=== PATIENT | male | born 1950 | race Caucasian/White ===

== ENCOUNTER 2020-11-06 16:42 | Inpatient (IN) | payer MEDICARE, OTHER ==
[~2020-11-06] VITALS: Ht 180.3 cm; Wt 72.7 kg
[2020-11-06] MEDS ORDERED: ONDANSETRON 2MG/ML, 2ML ONE (17:19)
[2020-11-06] MEDS ORDERED: HYDROmorphone 1 MG/ML, 1ML INJ ONE ×2 (17:19→20:53)
[2020-11-06] MEDS ORDERED: ONDANSETRON 2MG/ML, 2ML IVPush ONE (17:30)
[2020-11-06] MEDS ORDERED: SODIUM CHLORIDE 0.9% 1,000 ML IV ONE (17:30)
[2020-11-06] MEDS: HYDROmorphone 2 MG/ML, 1ML IVPush PRN ×2 (17:37→21:00)
--- NOTE | 2020-11-06 17:42 | NUR ---
PIV EST AND PT MED NOTED. PT TO RADIOLOGY WITH TECH TRANSPORT. TRANSPORT AWARE PT WAS GIVEN 1MG DILAUDID.
--- NOTE | 2020-11-06 17:46 | NUR ---
PT DAUGHTER CALLED MARCUS VAZQUEZ [phone]
[2020-11-06 17:51] LABS: ALBUMIN 2.6 g/dL (3.4-5.0); ANION GAP 12 mmol/L (5-15); CALCIUM 9.1 mg/dL (8.5-10.1); CHLORIDE 100 mmol/L (98-107)
[2020-11-06 17:52] LABS: BASOPHILS % (AUTO) 0 % (0-1); EOSINOPHILS % (AUTO) 0 % (1-7); LYMPHOCYTES % (AUTO) 3 % (22-44); MEAN CORPUSCULAR HEMOGLOBIN 32.4 pg (27.5-34.5); MEAN CORPUSCULAR HGB CONC 33.8 g/dL (33.2-36.2); MEAN PLATELET VOLUME 8.8 fL (7.4-10.4); MONOCYTES % (AUTO) 5 % (2-9); NEUTROPHILS % (AUTO) 92 % (42-75); PLATELET COUNT 326 x10^3/uL (130-400); RED CELL DISTRIBUTION WIDTH 14.9 % (9.4-14.8)
[2020-11-06 17:54] LABS: ALANINE AMINOTRANSFERASE 38 U/L (12-78); ALKALINE PHOSPHATASE 133 U/L (45-117); BILIRUBIN,TOTAL 0.4 mg/dL (0.2-1.0); TOTAL PROTEIN 7.5 g/dL (6.4-8.2)
--- NOTE | 2020-11-06 18:03 | NUR ---
PT RTD FFROM RADIOLOGY, PER TECH AND PT RPT PT TOLLERATED WELL. PT RATES PAIN 4/10. ALL MONITORS IN PLACE, VSS. CALL LIGHT W/I REACH. IVF INFUSING ON DIAL-A-FLOW W/O DIFFICULTY
--- NOTE | 2020-11-06 18:09 | NUR ---
PT HR A-FIB W/ FILEMON OF. PT RPTS HE WAS UNABLE TO TOLLERATE TAKING ANY OF HIS MEDICATIONS TODAY. HR A-FIB 110 - 140 BP 180/75. DR ALBA AWARE.
[2020-11-06 18:32] LABS: MD SCAN
[2020-11-06] MEDS ORDERED: OMNIPAQUE 350 MG/ML, 100ML BOTTLE ONE (20:06)
[2020-11-06] MEDS ORDERED: SODIUM CHLORIDE 0.9% 1,000ML IVBOLUS ONE (21:00)
[2020-11-06] MEDS ORDERED: CEFTRIAXONE PMX 1GM/50ML 50 ML IV ONE (21:00)
[2020-11-06] MEDS ORDERED: DILTIAZEM 5 MG/ML, 5ML IVPush ONE (21:00)
[2020-11-06] MEDS ORDERED: METRONIDAZOLE PMX 500MG/100ML 100 ML IV ONE (21:00)
[2020-11-06] MEDS ORDERED: DILTIAZEM 5 MG/ML, 5ML ONE (21:08)
[2020-11-06] MEDS ORDERED: CEFTRIAXONE PMX 1GM/50ML 50 ML ONE (21:08)
[2020-11-06] MEDS ORDERED: METRONIDAZOLE PMX 500MG/100ML 100 ML ONE (22:25)
[2020-11-06] MEDS ORDERED: LORazepam 2 MG/ML, 1ML ONE (22:25)
[2020-11-06] MEDS ORDERED: ONDANSETRON 2MG/ML, 2ML IVPush PRN (22:30)
[2020-11-06] MEDS ORDERED: DILTIAZEM 125 MG in SODIUM CHLORIDE 0.9% 100 ML IV SCH (22:30)
[2020-11-06] MEDS ORDERED: BISACODYL 5 MG EC TABLET PO PRN (22:30)
[2020-11-06] MEDS: LORazepam 2 MG/ML, 1ML IVPush PRN (22:49)
--- NOTE | 2020-11-07 00:59 | NUR ---
PT ON COMFORT CARE, COMPLAINING THAT HE CANNOT URINATE. INPATIENT NOTIFIED. JAUREGUI PLACED. PT SEEMS TO BE UNCOMFORTABLE, BUT IS REFUSING PAIN MEDICATION STATING IT MADE HIM "FOGGY" AND HE DIDN'T WANT TO FEEL THAT WAY. RN OFFERED TO DISCUSS THIS ISSUE WITH INPATIENT ABOUT POSSIBLE MEDICATIONS. PT REFUSED SAYING HE DID NOT WANT ANYTHING AND WANTED TO GO TO SLEEP. PT GIVEN COVERS. LIGHTS DIMMED. MONITORED PLACED ON PRIVACY TO ALLOW PT A QUIET SETTING TO AID IN HIS DISCOMFORT. BIBI.
--- NOTE | 2020-11-07 01:03 | NUR ---
HR STILL ELEVATED. INPT NOTIFIED. RN ORDERED TO STOP CARDIZEM GTT TO MAINTAIN PT BP. WCTM.
--- NOTE | 2020-11-07 01:28 | NUR ---
TASK RN: PT RESTING ON GURNEY LIGHTS DIMMED RESP EVEN AND UNLABORED
[2020-11-07] MEDS ORDERED: MORPHINE SULFATE 4 MG/ML, 1ML IVPush PRN (01:30)
[2020-11-07] MEDS ORDERED: MORPHINE SULFATE 4 MG/ML, 1ML ONE (02:24)
--- NOTE | 2020-11-07 02:26 | NUR ---
PT CALLED RN. COMPLAINING OF PAIN. MORPHINE ADMINISTERED. PT REASSESSED AND PT IS SLEEPING COMFORTABLE. WCTM.
[2020-11-07] MEDS ORDERED: HYDROmorphone 1 MG/ML, 1ML INJ ONE ×6 (03:18→13:43)
[2020-11-07] MEDS: HYDROmorphone 1 MG/ML, 1ML INJ IV PRN ×7 (03:21→17:31)
--- NOTE | 2020-11-07 03:48 | NUR ---
PT PLACED ON HOSPITAL BED
--- NOTE | 2020-11-07 07:00 | NUR ---
assumed care of pt. report from Dunia BUTLER. pt here for abd pain and diarrhea. per report, pt has declined emergency surgery and has been placed on comfort care. pt has a farfan to drainage and is on a hospital bed for comfort. awaiting hospitalist to bedside for eval. awaiting arrival of pt family members. pr report, B/P cuff has been removed for pt comfort. pt is currently sleeping in position of comfort with lights dimmed. no apparent resp. distress notd at this time. discussed pending admit and orders in place with jenifer BUTLER
--- NOTE | 2020-11-07 07:45 | NUR ---
pt awake and requesting pain meds. pt has been medicated per order and updated on POC. pt positioning for comfort
--- NOTE | 2020-11-07 07:55 | NUR ---
oral swabs at bedside per pt request. pt is dozing
--- NOTE | 2020-11-07 08:07 | NUR ---
pt family at bedside
--- NOTE | 2020-11-07 08:45 | NUR ---
pt denies nausea. pt also declines meal tray or anything by mouth at this time. pt made aware that he can change his mind at any time
--- NOTE | 2020-11-07 09:45 | NUR ---
pt is sleeping pt has stated that he wants to be awake when he recievd pain meds and does not want to be medicated whn he is sleeping. will continue to monitor
--- NOTE | 2020-11-07 10:00 | NUR ---
pt sleeping in posiion of comfort with lights dimmed
--- NOTE | 2020-11-07 11:02 | NUR ---
no changes. pt sleeping in position of comfort. lights dimmed. no family at bedside
--- NOTE | 2020-11-07 11:45 | NUR ---
pt is now awake and requesting pain meds. pt medicated family at bedside. pt deneis nausea at this time. pt still declines food or drinks, but PO ice chips given pre request. pt updated on POC. pt resting in position of comfort
--- NOTE | 2020-11-07 12:05 | NUR ---
this RN had a very lengthy discussion with pt daughter regarding pt POC and pt comfort. pt daughter states that pt brother is en route to the facility and wants a family meeting scheduled with the patient, his family, his doctor and his surgeon to discuss his options pt is requesting KIRILL garcia, dietary has been contacted
--- NOTE | 2020-11-07 12:30 | NUR ---
pt son is now at bedside. pt daugher at bedside and pt SO at bedside. pt now states that "now that my son is here and my kids are here, I want a meeting with the surgeon to discuss my options" asked pt if he was wanting to change his POC, pt states that e is "on he fence about it" and "wants to talk to the doctor."
--- NOTE | 2020-11-07 12:35 | NUR ---
spoke to Dr. Alison castañeda the hsopitalist service regading pt statements and pt request to "meet with his doctors". per MD, pt needs to speak to the surgeon who consulted on the case pe Dr. Rosas, pt spoke to Dr. Jermaine St regarding possible surgery last nocs
--- NOTE | 2020-11-07 12:45 | NUR ---
paged Dr. Jermaine St with [facility] at [phone]
--- NOTE | 2020-11-07 12:50 | NUR ---
Dr. St has returned the page. updated on pt statements. Dr. St sates that he will be here in a couple of hours pt and family notified
--- NOTE | 2020-11-07 13:23 | NUR ---
pt dozing intermittently. pt and son at bedside updated on POC. pt to remain NPO at this time pending surgical consult
--- NOTE | 2020-11-07 13:29 | NUR ---
Dr. Rosas, hospitalist at bedside for eval
--- NOTE | 2020-11-07 13:37 | NUR ---
pt states to MD that he does not want to change his current POC. pt requesting KIRILL garcia pt positioning for comfort
[2020-11-07] MEDS ORDERED: ONDANSETRON 2MG/ML, 2ML ONE (13:43)
--- NOTE | 2020-11-07 13:48 | NUR ---
report to Roseann BUTLER for lunch
[2020-11-07 13:51] VITALS: BP 128/76
--- NOTE | 2020-11-07 13:51 | NUR ---
BREAK RN: PT RESTING UPRIGHT ON HOSPITAL BED WITH EYES CLOSED, RESPONDS APPROP TO STAFF & CONVERSES WITH FAMILY AT BS COHERENTLY, NAD- MEDICATED PER EMAR, COMFORT MEASURES PROVIDED INCL COLBY AT BS, CALL LIGHT WITHIN REACH.
[2020-11-07] MEDS ORDERED: PANTOPRAZOLE 40 MG IV IVPush SCH (14:00)
--- NOTE | 2020-11-07 14:27 | NUR ---
Pt to be admitted to [facility], room 438. Report called to KARLA.
--- NOTE | 2020-11-07 14:41 | NUR ---
pt positioning for comfort. pt and family updated on POC. offered pt ativan prior to transport, pt declines and states that he wants to wait until he gets to his room
[2020-11-07] MEDS ORDERED: PROCHLORPERAZINE 5 MG/ML, 2ML IVPush PRN (15:00)
[2020-11-07] MEDS ORDERED: SCOPOLAMINE 1MG PATCH TD SCH (15:00)
[2020-11-07] MEDS ORDERED: ATROPINE OPHTH SOLN 1%, 5ML MM PRN (15:00)
[2020-11-07] MEDS: LORazepam 2 MG/ML, 1ML IVPush PRN (15:09)
== END 2020-11-07 21:47 | disposition expired | DRG 394 ==
LOC: ED 18:51 → EDIP 23:07 → 4NW 11-07 14:55
PROVIDERS: ADMIT Family Medicine; ATTEND Internal Medicine
DX: K55.069 Acute infarction of intestine, part and extent unspecified (principal); E87.1 Hypo-osmolality and hyponatremia; A09 Infectious gastroenteritis and colitis, unspecified; E87.2 Acidosis; E11.9 Type 2 diabetes mellitus without complications; F17.200 Nicotine dependence, unspecified, uncomplicated; I48.91 Unspecified atrial fibrillation; F17.210 Nicotine dependence, cigarettes, uncomplicated; Z66 Do not resuscitate; Z20.828 Contact with and (suspected) exposure to other viral communicable diseases; Z51.5 Encounter for palliative care; Z88.2 Allergy status to sulfonamides; Z88.1 Allergy status to other antibiotic agents; Z88.0 Allergy status to penicillin; Z90.49 Acquired absence of other specified parts of digestive tract; Z79.84 Long term (current) use of oral hypoglycemic drugs
CPT/HCPCS: 36415; 74022; 74177; 80053; 83605; 83690; 85025; 87040; 93005; J0696; J1170; J2405; Q9967; C9113; J0780; J2060; J2270; J7030